=== PATIENT | female | born 1965 | race Caucasian/White ===

== ENCOUNTER 2023-03-09 07:07 | Day surgery (SDC) | payer MEDICAID ==
[~2023-03-09] VITALS: Ht 162.6 cm; Wt 75.3 kg
[2023-03-09] MEDS ORDERED: MEPERIDINE 50 MG/ML VIAL ONE (07:32)
[2023-03-09] MEDS ORDERED: MIDAZOLAM HCL 5 MG/5 ML VIAL ONE (07:32)
[2023-03-09 13:06] VITALS: BP_SYST 133
== END 2023-03-09 10:01 | disposition home or self-care (01) ==
LOC: SDS 07:07 → SMU 07:07 → SDS 10:01
PROVIDERS: ATTEND Internal Medicine Gastroenterology
DX: R10.13 Epigastric pain (principal); K29.50 Unspecified chronic gastritis without bleeding; K29.80 Duodenitis without bleeding; K21.9 Gastro-esophageal reflux disease without esophagitis; Z79.899 Other long term (current) drug therapy
CPT/HCPCS: 43239; 87081; 36415; 88305; 88312; 88313; 99152; G0378; J2250; J2175